=== PATIENT | female | born 1975 | race American Indian/Alaskan Native ===

== ENCOUNTER 2020-08-13 17:07 | Emergency (ER) | payer MEDICAID ==
[2020-08-13 17:13] VITALS: BP 171/105
--- NOTE | 2020-08-13 17:33 | Event Note ---
ED Screening Note Date of service: 08/13/20 Time: 17:32 ED Screening Note: Patient presents emerged part with a painful bump on the upper buttocks. She reports this has been drained in the past. This initial assessment/diagnostic orders/clinical plan/treatment(s) is/are subject to change based on patients health status, clinical progression and re- assessment by fellow clinical providers in the ED. Further treatment and workup at subsequent clinical providers discretion. Patient/guardian urged not to elope from the ED as their condition may be serious if not clinically assessed and managed. Initial orders include: Pilonidal abscess seen on exam. Plan to do incision and drainage.
--- NOTE | 2020-08-13 17:49 | Emergency Department Report ---
ED General Adult HPI - General Chief complaint: Skin/Abscess/Foreign Body Stated complaint: LFT FOREARM SPIDER BITE Time Seen by Provider: 08/13/20 17:45 Source: patient Mode of arrival: Ambulatory Limitations: No Limitations - History of Present Illness Initial comments: There is a very pleasant 44-year-old female presents the emergency department with a chief complaint of a painful red warm area to her left forearm that started when she woke up today. She denies any injuries. She does report some mild itching. She denies any known past medical history, current medications or known allergies to medications. She is currently breast-feeding. She has any associated fever, chills, night sweats, headache, dizziness, blurry vision, nausea, vomiting, diarrhea, chest pain, shortness of breath or any other associated symptoms. - Related Data Previous Rx's Medication Instructions Recorded Last Taken Type Ibuprofen [Motrin 800 MG tab] 800 mg PO Q8HR #30 tablet 08/13/20 Unknown Rx cephALEXin [Keflex] 500 mg PO Q6HR #40 capsule 08/13/20 Unknown Rx Allergies Allergy/AdvReac Type Severity Reaction Status Date / Time No Known Allergies Allergy Unverified 08/13/20 17:10 ED Review of Systems ROS: Stated complaint: LFT FOREARM SPIDER BITE Other details as noted in HPI Comment: All other systems reviewed and negative Constitutional: denies: chills, fever Eyes: denies: eye pain, eye discharge, vision change ENT: denies: ear pain, throat pain Respiratory: denies: cough, shortness of breath, wheezing Cardiovascular: denies: chest pain, palpitations Endocrine: no symptoms reported Gastrointestinal: denies: abdominal pain, nausea, diarrhea Genitourinary: denies: urgency, dysuria, discharge Musculoskeletal: denies: back pain, joint swelling, arthralgia Skin: as per HPI, rash. denies: lesions Neurological: denies: headache, weakness, paresthesias Psychiatric: denies: anxiety, depression Hematological/Lymphatic: denies: easy bleeding, easy bruising ED Past Medical Hx - Past Medical History Hx Diabetes: Yes Hx Asthma: Yes - Surgical History Past Surgical History?: No - Social History Smoking Status: Never Smoker Substance Use Type: Alcohol - Medications Home Medications: Home Medications Medication Instructions Recorded Confirmed Last Taken Type Ibuprofen [Motrin 800 MG tab] 800 mg PO Q8HR #30 tablet 08/13/20 Unknown Rx cephALEXin [Keflex] 500 mg PO Q6HR #40 capsule 08/13/20 Unknown Rx ED Physical Exam - General Limitations: No Limitations General appearance: alert, in no apparent distress - Head Head exam: Present: atraumatic, normocephalic - Eye Eye exam: Present: normal appearance, PERRL, EOMI Pupils: Present: normal accommodation - ENT ENT exam: Present: normal exam, normal orophraynx, mucous membranes moist - Neck Neck exam: Present: normal inspection, tenderness. Absent: meningismus - Respiratory Respiratory exam: Present: normal lung sounds bilaterally. Absent: respiratory distress, wheezes, rales, rhonchi, stridor - Cardiovascular Cardiovascular Exam: Present: regular rate, normal rhythm, normal heart sounds. Absent: systolic murmur, diastolic murmur, rubs, gallop - GI/Abdominal GI/Abdominal exam: Present: soft, normal bowel sounds. Absent: distended, tenderness, guarding, rebound, rigid - Extremities Exam Extremities exam: Present: normal inspection, full ROM, normal capillary refill, other (There is erythema and induration to the mid posterior forearm. There is full active range of motion of the wrist and elbow. There is normal radial pulses. Normal distal sensation capillary refill.). Absent: tenderness, calf tenderness - Back Exam Back exam: Present: normal inspection, full ROM. Absent: tenderness, other - Neurological Exam Neurological exam: Present: alert, oriented X3 - Psychiatric Psychiatric exam: Present: normal affect, normal mood - Skin Skin exam: Present: warm, dry, intact, normal color. Absent: rash ED Course Vital Signs 08/13/20 17:12 Temperature 98.0 F Pulse Rate 99 H Respiratory 18 Rate Blood Pressure 171/105 O2 Sat by Pulse 97 Oximetry ED Medical Decision Making - Medical Decision Making Patient's exam is consistent with mild cellulitis. I will treat the patient with antibiotics and recommended warm compresses. She was concerned because of the quick onset of infection and this could also be an allergic contact dermatitis although this does appear more indurated so I did recommend anti- inflammatories and antihistamines. She is breast-feeding so I will send her home with Keflex and ibuprofen and outpatient follow-up with primary care doctor in the next 24 to 48 hours. Return to emergency department with any change or worsening symptoms. She verbalized understanding of the diagnosis, treatment plan and follow-up instructions and all of her questions were answered. - Differential Diagnosis cellulitis, abscess, allergic contact dermatitis Critical care attestation.: If time is entered above; I have spent that time in minutes in the direct care of this critically ill patient, excluding procedure time. ED Disposition Clinical Impression: Cellulitis of forearm Disposition: DC- TO HOME OR SELFCARE Is pt being admited?: No Condition: Stable Instructions: Cellulitis, Adult Prescriptions: cephALEXin [Keflex] 500 mg PO Q6HR #40 capsule Ibuprofen [Motrin 800 MG tab] 800 mg PO Q8HR #30 tablet Referrals: [facility] [Provider Group] - 3-5 Days Time of Disposition: 17:49
== END 2020-08-13 17:53 | disposition home or self-care (01) ==
LOC: ED 17:07
DX: L03.114 Cellulitis of left upper limb (principal); E11.9 Type 2 diabetes mellitus without complications; J45.909 Unspecified asthma, uncomplicated; Z79.899 Other long term (current) drug therapy
CPT/HCPCS: 99282